=== PATIENT | male | born 1950 | race Caucasian/White ===

== ENCOUNTER → 2019-10-03 | Outpatient (CLI) | payer OTHER ==
[~2019-10-03] MED LIST: 24HOUR ALLERGY10 MG PO; DOXAZOSIN MESYLA8 MG PO; FINASTERIDE5 MG PO; HYDROCHLOROTHIA25 M2 PO; MAXZIDE-25 MG1 EACH PO; MELATONIN3 MG PO; PAXIL10 MG PO; PRAZOSIN 1 MG CA1 M1 PO; VITAMIN D-32000 UNI1 PO; WELLBUTRIN 75 M75 M1 PO; ZOCOR20 MG PO
== END ==
LOC: M.RAD 11:25
DX: M25.461 Effusion, right knee (principal)